=== PATIENT | male | born 1980 | race Caucasian/White ===

== ENCOUNTER 2024-11-02 20:39 | Emergency (ER) | payer MEDICAID ==
[~2024-11-02] VITALS: Ht 177.8 cm; Wt 120.0 kg
[2024-11-02 20:46] VITALS: BP 144/98; PULSE 89; RESP 16; O2SAT 97
--- NOTE | 2024-11-02 21:21 | RADIOLOGY REPORT ---
CLINICAL INDICATION: Finger Pain TECHNIQUE: 3 radiographic views of the right finger were obtained. Comparison: None FINDINGS/IMPRESSION: Acute comminuted mildly displaced fracture of the tuft of the 3rd digit with associated soft tissue l aceration and soft tissue edema. Recommend clinical correlation. Soft tissue laceration of the palmar distal 4th digit.
[2024-11-02] MEDS: LIDOcaine 1% 30ml preserv. free vial IJ STA (21:34)
--- NOTE | 2024-11-02 21:38 | Physician Documentation ---
History of Present Illness ~ Chief Complaint: Laceration Stated Complaint: FINGER LAC Time Seen by MD: 21:25 Primary Medical Doctor: NONE HPI 44-year-old male presents with right middle finger pain secondary to injuring himself with an electric powered circular saw. States he was misusing the saw and caused a laceration on the distal aspect of his right middle finger. Bleeding currently controlled Tetanus Within 5 Years: Yes Medication Reconciliation Allergies: Uncoded Allergies: NSAIDS (Allergy, Unknown, 11/02/24) Scheduled Cephalexin*Monohydrate* (Keflex*), 1 CAP PO QID Past Medical History Past Medical History: *INFECTIOUS DZ* Past Surgical History: other Alcohol Use: Occasionally Drug Use: marijuana Lives with: S/O Lives In: Home Occupation: employed Review of Systems All Other Systems at this time: Reviewed and Negative Physical Exam Vital Signs: Temperature: 97.7, Source: Temporal, Heart Rate: 89, Respiratory Rate: 16, BP: 144/98, Pulse Oximetry: 97, Weight: 120.000 Oxygen Flow Rate: 0 Physical Exam General: Alert, no apparent distress. Extremities: Normal range of motion, distal most aspect of the right middle finger is notable laceration almost complete full-thickness with the finger, with 4 cm circumferential laceration Neurologic: Oriented x4. Psychiatric: Normal mood and affect. Skin: Normal color, warm and dry. No edema, no ecchymosis. Procedures Laceration/Wound Repair Laceration : Anesthesia: Lidocaine Debrided: minimal Undermining: none Repaired: skin Wound Repaired With: sutures Suture Size/Type: 4-0 Number of Superficial Sutures: 9 Dressing Applied: simple, non-adherent Tolerated Procedure Well?: yes, no complications Progress Results/Orders Results/Orders Orders - IRVING CARL NP Laceration/I&D Tray Set Up (11/02/24 ) Completed Orders - IRVING CARL ECONOMIC ANALYST Lidocaine 1% 30ml Vial (Xylocaine 1% Via (11/02/24 21:26) Vital Signs 11/02/24 11/02/24 20:46 22:16 Temp 97.7 97.7 Pulse 89 Resp 16 B/P (MAP) 144/98 Pulse Ox 97 O2 Flow Rate 0 Medical Decision Making Findings This 44-year-old male presented with a laceration concerning for loss of tissue and contamination. Gave him a tetanus shot and will start him on antibiotics. So I approximated his laceration via 4-0 Ethilon without difficulty patient tolerated procedure well.. Patient also adds that he was up-to-date on tetanus. He has started him on oral antibiotics based on in the mechanism of injury and the fact that his laceration occurred in the distal aspect of his extremity Differential Dx:Considerations: Include: Abrasion, Avulsion, Contusion, Laceration, Fracture, Hematoma, Neurovascular injury, Retained foreign body, Other Departure Disposition: HOME / SELF CARE / HOMELESS Impression: Primary Impression: Laceration Condition: Stable Discharge Instructions: Laceration Care, Adult, [id number] Additional Instructions: Have sutures removed in 7-10 days. Keep the area clean and dry. Take all of your medication as directed Referrals: NO PRIMARY CARE PROVIDER (PCP) Prescriptions Cephalexin*Monohydrate* (Keflex*) 500 Mg Capsule 1 CAP PO QID, #40 CAP Prov: IRVING CARL ECONOMIC ANALYST 11/02/24 Education Educated: Patient Educated regarding: diagnosis Signature Scribe Signature: t Attestation: Scribed for Irving Carl Relief Manager by Irving Carl - SAMARA . 11/02/24 23:03 IRVING CARL NP Nov 02, 2024 21:38
[2024-11-02] MEDS ORDERED: CEPH-585 PO (22:13)
[2024-11-02 22:16] VITALS: TEMP 97.7
== END 2024-11-02 22:21 | disposition home or self-care (01) ==
LOC: ER 20:40
DX: S61.212A Laceration without foreign body of right middle finger without damage to nail, initial encounter (principal); F12.90 Cannabis use, unspecified, uncomplicated; Z72.89 Other problems related to lifestyle; X58.XXXA Exposure to other specified factors, initial encounter; Y93.89 Activity, other specified; Y92.89 Other specified places as the place of occurrence of the external cause; Y99.8 Other external cause status
CPT/HCPCS: 12002; 73140; 99283; J7030; A6258